=== PATIENT | female | born 1970 | race Caucasian/White ===

== ENCOUNTER 2022-05-11 09:05 | Emergency (ER) | payer SELFPAY ==
[2022-05-11 09:10] VITALS: BP 123/110; PULSE 98; RESP 20; TEMP 37.1; O2SAT 100; BMI 17.7
--- NOTE | 2022-05-11 09:23 | CRLHL7_ITS ---
For Patients: As a result of the Century Cures Act, medical imaging exams and procedure reports are released immediately into your electronic medical record. You may view this report before your referring provider. If you have questions, please contact your health care provider. INDICATION: Blood in stool and abdominal pain TECHNIQUE: CT abdomen and pelvis with 49 cc Isovue 370 IV contrast. COMPARISON: None. FINDINGS: The liver is normal in size, shape and attenuation. Gallbladder and biliary tree are normal. The spleen, adrenal glands and pancreas are within normal limits. The kidneys are unremarkable. Bladder decompressed limiting evaluation for wall thickening. Stomach is decompressed limiting evaluation for wall thickening. No evidence of bowel obstruction. Wall thickening of the descending/proximal sigmoid colon with moderate adjacent inflammation. The appendix is not definitely visualized. No significant free fluid and no free air. Moderate atherosclerosis of the abdominal aorta. The uterus is visualized. The ovaries are obscured. The lower chest is unremarkable. IMPRESSION: Wall thickening of the descending/proximal sigmoid colon with moderate adjacent inflammation. Findings concerning for infectious/inflammatory colitis. Ischemic colitis an additional consideration but felt less likely. Please note that all CT scans at this facility use dose modulation, iterative reconstruction, and/or weight-based dosing when appropriate to reduce radiation dose to as low as reasonably achievable. Dictated by Khari Loyola MD @ 05/11/2022 11:44:16 AM (Electronically Signed)
--- NOTE | 2022-05-11 09:25 | ED_ITS ---
HPI - Abdominal Pain General Chief Complaint: Abdominal Pain Stated Complaint: Blood in stool and abdominal pain Time Seen by Provider: 05/11/22 09:08 History of Present Illness HPI narrative: Manuela is a 51-year-old female patient who presents emergency department today via private vehicle with complaints of bright red blood per rectum and abdominal pain, bloating, and distention. She reports the pain as generalized and cramping. Patient reports her symptoms started 1 day prior to presentation and she has noticed multiple episodes of bleeding associated with passing gas. Patient reports that she has not had any recurrent episodes this morning, but she states she continues with bloating and distention. She has not had previous similar concerns. The patient denies nausea, vomiting, or chest pain/shortness of breath. The patient has not been following with routine preventative care, and she denies previous colonoscopy. She is a 30+ pack year history smoker. See nursing notes for additional details. Related Data Previous Rx's Medication Instructions Recorded ciprofloxacin HCl 500 mg tablet 500 mg PO BID #10 tab 05/11/22 (Cipro) metronidazole 500 mg tablet 500 mg PO TID #15 tab 05/11/22 Allergies Allergy/AdvReac Type Severity Reaction Status Date / Time No Known Drug Allergies Allergy Verified 05/11/22 10:39 Review of Systems Const Denies: fever, chills, fatigue or malaise Cardio Denies: chest pain, palpitations or shortness of breath with exertion Resp Denies: shortness of breath or cough GI Reports: abdominal pain, bloating and excessive passing of gas (with bloody show noted); Denies: nausea, vomiting, diarrhea, constipation or painful bowel movements Denies: painful urination, urinary frequency, urinary urgency or blood in urine Endo Denies: fatigue [facility] Medical History (Updated 05/11/22 @ 12:03 by Keily Garcia DO) No significant past medical history Surgical History (Updated 05/11/22 @ 09:16 by Rani Walton RN) No significant past surgical history Social History Smoking Status: Current every day smoker How often do you have a drink containing alcohol: never AUDIT-C Alcohol total score: 0 Non-prescribed substance use: marijuana (any form) Exam Const: Vital Signs, click to edit/add: Vital Signs - 24 hr 05/11/22 09:10 05/11/22 10:30 Temperature 98.7 F Pulse Rate [Pulse Oximeter] 98 84 Respiratory Rate 20 16 Blood Pressure [Le ft Upper Arm] 123/110 H 114/81 Pulse Oximetry 100 98 Documenting provider has reviewed patient's vital signs: yes Common normals: no apparent distress, average body habitus, oriented x3, no limitations, healthy appearing and alert General appearance: cooperative, comfortable, well kempt, well developed and anxious Nutritional appearance: thin Orientation/consciousness: Yes awake, Yes oriented to person, Yes oriented to place and Yes oriented to time HENMT: Common normals: normocephalic Head and scalp: normal to inspection and normocephalic Eye: Common normals: EOMs intact bilaterally General eye: normal appearance of both eyes Neck & C-Spine: Common normals: full ROM, no lymphadenopathy and supple Resp: Common normals: normal respiratory effort, no retractions, no use of accessory muscles and clear to auscultation bilaterally Auscultation: clear to auscultation bilaterally Cardio: Common normals: regular rate, regular rhythm, S1 normal heart sound, S2 normal heart sound, no gallops and no murmurs Rate: regular rate Rhythm: regular rhythm Heart sounds: S1 normal and S2 normal GI: Common normals: Normal to inspection, nondistended, normoactive bowel sounds present, soft to palpation and non-tender Palpation: soft Rectal Exam - Female: deferred Extremity: Common normals: normal to inspection, full ROM, normal capillary refill and no clubbing, cyanosis or edema Neuro: Common normals: oriented x3, moves all extremities, no focal motor deficits and no sensory deficits noted Sensorium/orientation: awake, alert, oriented to person, oriented to place and oriented to time Psych: Common normals: mental status grossly normal, thought process normal, cooperative, affect normal and speech normal Appearance: well kempt Speech: normal speech Thought process: normal thought process Skin: Common normals: no rashes or lesions noted General skin exam: no rashes or lesions noted Course Reevaluation(s) Reevaluation #1: Manuela is resting comfortably, reports improvement in her discomfort, and vitals have remained stable. Advised her we are awaiting imaging and laboratory studies. Time: 11:21 Vital Signs Vital signs: Initial Vital Signs Temperature 98.7 F 05/11/22 09:10 Temperature Source Temporal Artery Scan 05/11/22 09:10 Pulse Rate 98 05/11/22 09:10 Respiratory Rate 20 05/11/22 09:10 Blood Pressure 123/110 H 05/11/22 09:10 Blood Pressure Mean 114 05/11/22 09:10 Blood Pressure Position Supine 05/11/22 09:10 Pulse Oximetry 100 05/11/22 09:10 Oxygen Delivery Method 05/11/22 09:10 Vital Signs Temperature 98.7 F 05/11/22 09:10 Pulse Rate 98 05/11/22 09:10 Respiratory Rate 20 05/11/22 09:10 Blood Pressure 123/110 H 05/11/22 09:10 Pulse Oximetry 100 05/11/22 09:10 Temperature 98.7 F 05/11/22 09:10 Pulse Rate 84 05/11/22 10:30 Respiratory Rate 16 05/11/22 10:30 Blood Pressure 114/81 05/11/22 10:30 Pulse Oximetry 98 05/11/22 10:30 MDM - Abdominal Pain MDM Narrative Medical decision making narrative: Manuela is a 51yo female with BRBPR x 2 days with bloating and distension. She has not had recent colonoscopy and is a smoker with high risk history. She has not followed with primary care and is anxious regarding medical services. Labs and imaging as ordered. She is currently comfortable without other acute concern. At time of discharge, the patient has rested comfortably during her ED visit. Differential Diagnosis Differential diagnosis: Likely abdominal pain, constipation, gastroenteritis and small bowel obstruction Lab Data Attestation: I reviewed the patient's lab results. Labs: Lab Results 05/11/22 05/11/22 05/11/22 Range/Units 09:35 09:35 11:15 WBC 7.99 (4.50-11.00) K/uL RBC 5.00 (4.00-5.20) m/uL Hgb 15.0 (12.0-16.0) gm/dL Hct 45.3 (33.0-51.0) % MCV 91 (80-100) fL MCH 30 (26-34) pg MCHC 33 (32-36) gm/dL RDW Coeff of Christa 13.0 (11.5-15.5) % Plt Count 127 L (140-440) K/uL Neut % (Auto) 68.0 (42.0-72.0) % Lymph % (Auto) 22.0 (20-44) % [place] % (Auto) 8.0 (0.0-11.0) % Eos % (Auto) 1.3 (0.0-7.0) % Baso % (Auto) 0.6 (0.0-3.0) % Neut # (Auto) 5.43 (1.7-7.0) K/uL Lymph # (Auto) 1.76 (0.90-2.90) K/uL [place] # (Auto) 0.60 (0.00-0.90) K/UL Eos # (Auto) 0.10 (0.00-0.50) K/uL Baso # (Auto) 0.05 (0.00-0.30) K/uL Abs Immat Gran (auto) 0.01 (0.00-0.30) K/uL Sodium 136 (135-149) mmol/L Potassium 3.8 (3.6-5.1) mmol/L Chloride 102 (96-114) mmol/L Carbon Dioxide 31 (20-32) mmol/L BUN 9 (7-30) mg/dL Creatinine 0.7 (0.5-1.5) mg/dL Estimated Creat Clear 68.08 Estimated GFR 105 ml/min Glucose 130 H (60-115) mg/dL Calcium 9.0 (8.4-10.6) mg/dL Total Bilirubin 0.3 (0.1-1.5) mg/dL AST 33 (12-35) U/L ALT 31 (4-35) U/L Alkaline Phosphatase 156 H (40-150) U/L Total Protein 6.9 (6.0-8.3) g/dL Albumin 3.9 (3.3-5.0) g/dL Urine Color Yellow (Yellow) Urine Appearance Clear (Clear) Urine pH 7.0 (5.0-8.5) Ur Specific [place] 1.015 (1.000-1.030) Urine Protein Negative (Negative) Urine Glucose (UA) Negative (Negative) Urine Ketones Negative (Negative) Urine Blood Negative (Negative) Urine Nitrite Negative (Negative) Urine Bilirubin Negative (Negative) Urine Urobilinogen 0.2 (0.2-1.0) Ur Leukocyte Esterase Negative (Negative) Imaging Data CT scan - abdomen: Attestation: I have reviewed the pertinent imaging results. My impression: Moderate stool burden Radiologist's impression: IMPRESSION: Wall thickening of the descending/proximal sigmoid colon with moderate adjacent inflammation. Findings concerning for infectious/inflammatory colitis. Ischemic colitis an additional consideration but felt less likely. Discharge Plan Discharge Clinical Impression: Colitis Patient Disposition: Home, Self-Care Condition: Improved Instructions: Colitis (ED) Additional Instructions: Thank you for choosing [facility] for your care today. Follow-up as directed with general surgery for consideration of outpatient diagnostic colonoscopy. Drink plenty of water and consider using electrolyte replacement like Gatorade or substitute. Add probiotic of choice - Culturelle, M[employer], or Kefir - or substitute. Eat a bland diet and advance as tolerated. Diet should include bananas, rice, applesauce, and toast (BRAT diet) and other bland foods. Slowly advance diet as tolerated. Consider possible dietary restrictions regarding lactose and/or gluten for pe rsistent symptoms. If your symptoms worsen or persist, consider further evaluation and treatment including labs and imaging. I recommend calling primary care for follow-up in the next 3-5 days for reevaluation of symptoms and to establish care. If new or worsening symptoms develop or you have any concerns in the meantime, please call your primary care clinic or return to the ER for re-evaluation. Activity Level: Activity as Tolerated Discharge Diet: Regular, Heart Healthy (2 gm sodium, low fat) and High Fiber Prescriptions: New metronidazole 500 mg tablet 500 mg PO TID Qty: 15 0RF ciprofloxacin HCl [Cipro] 500 mg tablet 500 mg PO BID Qty: 10 0RF Follow Up/Referrals: Franca Escoabr MD [Staff Physician] - (Consider diagnostic colonoscopy (no prev screening, BRBPR) after treatment for colitis) Provider,Not a Local [Primary Care Provider] - Stand Alone Forms: [employer] Info Instructions
[2022-05-11 09:40] LABS: Basophils Absolute Auto 0.05 K/uL (0.00-0.30); Basophils Percent Auto 0.6 % (0.0-3.0); Eosinophils Percent Auto 1.3 % (0.0-7.0); Hematocrit 45.3 % (33.0-51.0); Immature Granulocytes Abs Auto 0.01 K/uL (0.00-0.30); Lymphocytes Absolute Auto 1.76 K/uL (0.90-2.90); Mean Corpuscular HGB Conc 33 gm/dL (32-36); Mean Corpuscular Hemoglobin 30 pg (26-34); Mean Corpuscular Volume 91 fL (80-100); Neutrophils Absolute Auto 5.43 K/uL (1.7-7.0); Platelet Count* 127 K/uL (140-440); White Blood Count* 7.99 K/uL (4.50-11.00)
[2022-05-11 09:51] LABS: Slide Review Reflex No
[2022-05-11 10:06] LABS: Albumin* 3.9 g/dL (3.3-5.0); Chloride* 102 mmol/L (96-114); Potassium* 3.8 mmol/L (3.6-5.1); Sodium* 136 mmol/L (135-149)
[2022-05-11 10:08] LABS: Creatinine* 0.7 mg/dL (0.5-1.5); Est. Creatinine Clearance* 68.08; Estimated Glomerular Filt Rate 105 ml/min
[2022-05-11 10:09] LABS: Alanine Aminotransferase* 31 U/L (4-35); Alkaline Phosphatase* 156 U/L (40-150); Aspartate Amino Transferase* 33 U/L (12-35); Bilirubin Total* 0.3 mg/dL (0.1-1.5); Blood Urea Nitrogen* 9 mg/dL (7-30); Carbon Dioxide* 31 mmol/L (20-32); Glucose* 130 mg/dL (60-115); Total Protein* 6.9 g/dL (6.0-8.3)
[2022-05-11 10:30] VITALS: BP 114/81; PULSE 84; RESP 16; O2SAT 98
[2022-05-11 11:24] LABS: Appearance Urine Clear (Clear); Bilirubin Urine Negative (Negative); Blood Urine Negative (Negative); Color Urine Yellow (Yellow); Glucose Urine Negative (Negative); Ketones Urine Negative (Negative); Leukocyte Esterase Urine Negative (Negative); Nitrite Urine Negative (Negative); Protein Urine Negative (Negative); Specific Gravity Urine 1.015 (1.000-1.030); Urobilinogen Urine 0.2 (0.2-1.0)
== END 2022-05-11 12:25 | disposition home or self-care (01) ==
PROVIDERS: Emergency Provider Family Medicine
DX: K52.9 Noninfective gastroenteritis and colitis, unspecified (principal)
CPT/HCPCS: 36415; 74177; 80053; 81003; 85025; 99284; Q9967